=== PATIENT | female | born 1950 | race Caucasian/White ===

== ENCOUNTER 2021-03-26 15:56 | Day surgery (SDC) | payer MEDICARE ==
[2021-03-26] MEDS ORDERED: Xylocaine 1% Vial 30 ML PF IJ ONE (15:57)
[2021-03-26] MEDS ORDERED: BUPIVACAINE 0.5% VIAL IJ ONE (15:57)
[2021-03-26] MEDS ORDERED: Depo-Medrol 40 MG/ML IM ONE (15:57)
--- NOTE | 2021-03-27 08:01 | XRAY ---
14 seconds fluoroscopy time in surgery for injection of the right SI joint.
--- NOTE | 2021-03-27 10:40 | XRAY ---
Indication: Right SI joint injection. Intraoperative fluoroscopy provided for 14 seconds. Single lateral digital spot image submitted for interpretation demonstrates posterior needle tip projecting distal sacrum level. Correlate with intraoperative findings/report.
== END 2021-03-26 18:03 | disposition home or self-care (01) ==
LOC: SDC-PAIN 15:56
PROVIDERS: ATTEND Psychiatry & Neurology Pain Medicine
DX: M46.1 Sacroiliitis, not elsewhere classified (principal); I10 Essential (primary) hypertension; Z79.899 Other long term (current) drug therapy
CPT/HCPCS: 27096; 72020; 77002; G0260; J1030; J2001